=== PATIENT | male | born 1940 | race Caucasian/White ===

== ENCOUNTER → 2023-11-30 15:30 | Outpatient (REF) | payer OTHER, SELFPAY ==
[2023-12-01 09:57] LABS: % Basophils 1.3 % (0-2); % Eosinophils 7.4 % (0-6); % Immature Granulocytes 0.2 % (0-0.5); % Lymphocytes 26.7 % (20.5-51.1); % Monocytes 13.1 % (1.7-9.3); % Neutrophils 51.3 % (42.2-75.2); Absolute Basophils 0.1 10^3/uL (0-0.2); Absolute Eosinophils 0.4 10^3/uL (0-0.7); Absolute Lymphocytes 1.4 10^3/uL (1.2-3.4); Absolute Monocytes 0.7 10^3/uL (0.1-0.6); Absolute Neutrophils 2.7 10^3/uL (1.4-6.5); Hematocrit 40.5 % (39.0-52.0); Hemoglobin 13.3 g/dL (13.0-18.0); Mean Corp Hgb Conc. 32.8 g/dL (33.0-37.0); Mean Corpuscular Hgb 29.6 pg (27.0-31.0); Mean Corpuscular Volume 90.2 fL (80.0-94.0); Mean Platelet Volume 10.4 fL (7.4-10.4); Nucleated Red Blood Cells % 0 % (-); Platelet Count 195 10^3/uL (130-400); Red Blood Cell Count 4.49 10^6/uL (4.70-6.10); Red Cell Dist. Width 13.9 % (11.5-14.5); White Blood Cell Count 5.3 10^3/uL (4.8-10.8)
[2023-12-01 10:29] LABS: ALT (SGPT) 23 U/L (0-50); AST (SGOT) 31 U/L (17-59); Alkaline Phosphatase 65 U/L (38-126); Blood Urea Nitrogen 16 mg/dl (9-20); Calcium 9.2 mg/dl (8.4-10.2); Carbon Dioxide 27 mmol/L (22-30); Chloride 102 mmol/L (98-107); Glucose 124 mg/dl (70-99); HDL Cholesterol 56 mg/dl; LDL Cholesterol, Calculated 62 mg/dl; Potassium 4.5 mmol/L (3.5-5.1); Sodium 135 mmol/L (135-145); Total Bilirubin 0.5 mg/dl (0.2-1.3); Total Cholesterol 136 mg/dl (50-199); Triglyceride 92 mg/dl (10-149); Very Low Density Lipoprotein 18 mg/dl (0-30); eGFR > 60.00
[2023-12-01 13:20] LABS: Glycohemoglobin (HgbA1c) 6.5 % (4.0-5.6)
== END ==
LOC: CLAB 15:30
PROVIDERS: ATTENDING PHYSICIAN Nurse Practitioner
DX: E11.69 Type 2 diabetes mellitus with other specified complication (principal); E78.5 Hyperlipidemia, unspecified; G40.909 Epilepsy, unspecified, not intractable, without status epilepticus
CPT/HCPCS: 80053; 80061; 83036; 85025

== ENCOUNTER 2024-01-29 13:59 | Emergency (ER) | payer OTHER, SELFPAY ==
[2024-01-29 14:00] VITALS: BP 157/68
[2024-01-29 15:00] VITALS: BP 139/85
[2024-01-29 15:45] LABS: % Basophils 0.7 % (0-2); % Immature Granulocytes 0.3 % (0-0.5); % Lymphocytes 21.9 % (20.5-51.1); % Monocytes 12.2 % (1.7-9.3); % Neutrophils 60.9 % (42.2-75.2); Absolute Eosinophils 0.2 10^3/uL (0-0.7); Absolute Lymphocytes 1.3 10^3/uL (1.2-3.4); Absolute Monocytes 0.7 10^3/uL (0.1-0.6); Absolute Neutrophils 3.5 10^3/uL (1.4-6.5); Hematocrit 35.3 % (39.0-52.0); Hemoglobin 12.5 g/dL (13.0-18.0); Mean Corp Hgb Conc. 35.4 g/dL (33.0-37.0); Mean Corpuscular Volume 84.9 fL (80.0-94.0); Mean Platelet Volume 9.3 fL (7.4-10.4); Nucleated Red Blood Cells % 0 % (-); Platelet Count 187 10^3/uL (130-400); Red Blood Cell Count 4.16 10^6/uL (4.70-6.10); White Blood Cell Count 5.8 10^3/uL (4.8-10.8)
[2024-01-29 15:58] LABS: ALT (SGPT) 22 U/L (0-50); AST (SGOT) 30 U/L (17-59); Albumin 4.2 g/dl (3.5-5.0); Alkaline Phosphatase 60 U/L (38-126); Blood Urea Nitrogen 16 mg/dl (9-20); Calcium 9.4 mg/dl (8.4-10.2); Carbon Dioxide 24 mmol/L (22-30); Chloride 98 mmol/L (98-107); Glucose 110 mg/dl (70-99); Potassium 4.4 mmol/L (3.5-5.1); Sodium 131 mmol/L (135-145); Total Bilirubin 0.7 mg/dl (0.2-1.3); Total Protein 7.1 g/dl (6.3-8.2); eGFR > 60.00
--- NOTE | 2024-01-29 15:58 | ED.GENMED ---
History of Present Illness
<Eugenia Lucio PA-C - Last Filed: 01/29/24 22:33>
General
Chief Complaint: Fall
Source: patient
Exam Limitations: none
Time Seen by Provider: 01/29/24 15:05
Nursing documentation reviewed up to this point in time: agreed with
Travel History
Have you had any contact with someone who has COVID-19?: No
Do you have any symptoms of coronavirus? Fever > 100 degrees, chills, cough, shortness of breath, sore throat, loss of taste or smell, muscle aches, or headache?: No
History of Present Illness
History of Present Illness:
Patient is an 83 year old male with hx type 2 diabetes, epilepsy presenting to the emergency department via ems for evaluation of unwitnessed fall earlier today. Patients states that they were at a car dealership around 1PM when patient went to
the bathroom. He states that after entering the bathroom the door swung closed behind him knocking him from behind causing him to lose his balance. He apparently fell striking the back of his head. Fall was unwitnessed given family was on the other
side of the door. They do not believe he lost consciousness. Patient's family does report some increased confusion since fall.
Patient denies any preceding chest pain, shortness of breath, dizziness/lightheadedness prior to fall. He states that he 'lost his balance when hit with the door '. Patient denies any headache, visual changes, nausea/vomiting, neck pain, or back
pain. He denies any pain in his lower extremities. He denies sustaining any other injuries sustained in the fall.
Patient takes a baby aspirin.
Past History
<Eugenia Lucio PA-C - Last Filed: 01/29/24 22:33>
Past History
ED Past Medical History: NIDDM, Seizures and Other (Chronic ambulatory dysfunction, utilizes rolling walker.); Negative HTN or Hypercholesterolemia
ED Past Surgical History: Cardiac and Orthopedic
Social History
Tobacco: Former smoker
Alcohol: None
Drug: None
Personal:
Living: with family
Employment: Retired
Family History
Family History: Hypertension and CAD
Phy Exam
<Eugenia Lucio PA-C - Last Filed: 01/29/24 22:33>
Physical Exam
Physical Exam:
Vitals: Mildly hypertensive, otherwise vital signs stable
General: Patient is well appearing, no acute distress
Skin: Warm and dry, no rashes or lesions
Head: Normocephalic, approximately 1 cm contusion on right posterior scalp
Eyes: Sclera nonicteric. EOMs intact. No nystagmus. Pupils equal round and reactive light bilaterally.
Throat: Protecting airway
Neck: Normal ROM, no cervical spine tenderness, no meningismus
Cardiac: Regular rate and rhythm, no murmurs.
Pulm: Normal respiratory effort, no wheezes, rales, rhonchi heard on exam.
Abdomen: No abdominal tenderness.
Back: No midline spinal tenderness
Extremities: No evidence of cyanosis or edema. Full range of motion in bilateral knees and bilateral hips without any focal tenderness or obvious deformity.
Neuro: AAOx3. CN II-XII intact. No focal neurologic deficits. Strength 5 out of 5 in upper and lower extremities. Sensation fully intact.
Psychiatric: Normal affect.
Course
<Eugenia Lucio PA-C - Last Filed: 01/29/24 22:33>
Orders/Labs/Results
Orders:
Orders
01/29/24
Electrocardiogram (*1) Stat
Comment: ALREADY DONE
01/29/24 15:29
CT Head W/o Iv Contrast Urgent
Comment:
Reason For Exam: fall, posterior head strike
01/29/24 15:33
Complete Blood Count/With Diff Urgent
Comprehensive Metabolic Panel Urgent
01/29/24 16:02
0.9% Sodium Chloride 1000 ml [Nss] 1,000 ml IV BOLUS
Abnormal Lab Results
01/29/24
15:33
RBC 4.16 L 10^6/uL
(4.70-6.10)
Hgb 12.5 L g/dL
(13.0-18.0)
Hct 35.3 L %
(39.0-52.0)
Absolute Monos (auto) 0.7 H 10^3/uL
(0.1-0.6)
Monocytes % 12.2 H %
(1.7-9.3)
Sodium 131 L mmol/L
(135-145)
Glucose 110 H mg/dl
(70-99)
01/29/24 15:33
01/29/24 15:33
Vital Signs
Initial and Last Documented VS:
Initial Vital Signs
Temp Pulse Resp BP Pulse Ox
98.3 F 62 20 157/68 98
01/29/24 14:00 01/29/24 14:00 01/29/24 14:00 01/29/24 14:00 01/29/24 14:00
Last Documented Vital Signs
Temp Pulse Resp BP Pulse Ox
98.3 F 66 20 136/92 100
01/29/24 14:00 01/29/24 17:00 01/29/24 17:00 01/29/24 17:00 01/29/24 17:00
Nahunlt;Zac Xiao DO - Last Filed: 01/29/24 17:14>
Orders/Labs/Results
Orders:
Orders
01/29/24
Electrocardiogram (*1) Stat
Comment: ALREADY DONE
01/29/24 15:29
CT Head W/o Iv Contrast Urgent
Comment:
Reason For Exam: fall, posterior head strike
01/29/24 15:33
Complete Blood Count/With Diff Urgent
Comprehensive Metabolic Panel Urgent
01/29/24 16:02
0.9% Sodium Chloride 1000 ml [Nss] 1,000 ml IV BOLUS
Abnormal Lab Results
01/29/24
15:33
RBC 4.16 L 10^6/uL
(4.70-6.10)
Hgb 12.5 L g/dL
(13.0-18.0)
Hct 35.3 L %
(39.0-52.0)
Absolute Monos (auto) 0.7 H 10^3/uL
(0.1-0.6)
Monocytes % 12.2 H %
(1.7-9.3)
Sodium 131 L mmol/L
(135-145)
Glucose 110 H mg/dl
(70-99)
01/29/24 15:33
01/29/24 15:33
Vital Signs
Initial and Last Documented VS:
Initial Vital Signs
Temp Pulse Resp BP Pulse Ox
98.3 F 62 20 157/68 98
01/29/24 14:00 01/29/24 14:00 01/29/24 14:00 01/29/24 14:00 01/29/24 14:00
Last Documented Vital Signs
Temp Pulse Resp BP Pulse Ox
98.3 F 66 20 136/92 100
01/29/24 14:00 01/29/24 17:00 01/29/24 17:00 01/29/24 17:00 01/29/24 17:00
<Eugenia Lucio PA-C - Last Filed: 01/29/24 22:33>
MDM/Problems Addressed
Differential Diagnosis Includes:
Not limited to: Contusion, concussion, intraparenchymal hemorrhage
MDM/Problems Addressed:
Patient is 83-year-old male presenting via EMS for further evaluation following unwitnessed mechanical fall about an hour ago. There is not believed to be any loss of consciousness. He fell striking his posterior head. Patient has no acute
complaints at this time. Family does believe he may be more forgetful than usual since fall. Patient denies any preceding chest pain, shortness of breath, dizziness prior to fall. This does seem to be a mechanical fall. Patient has stable vital
signs. Exam as above. There is a minor contusion to his right posterior scalp. There are no focal neurologic deficits noted on exam. No other injury sustained during fall. Heart regular rate and rhythm. Lungs clear bilaterally. Basic labs.
Will get EKG and head CT. Will monitor closely reassess.
Labs noted. Mild hyponatremia with sodium of 131. I do not suspect this to be contributor to patient's symptoms. Will give IV fluids. Head CT pending.
Head CT shows no acute intracranial abnormality. Patient is stable for discharge with return precautions, close monitoring at home. Recommended staying well-hydrated. Patient will follow-up with primary care early next week. Patient and patient's
family comfortable with plan. All questions answered.
Chronic conditions affecting care:
N/A
Acute Exacerbation and/or Progression of Chronic Illness:
N/A
<Eugenia Lucio PA-C - Last Filed: 01/29/24 22:33>
*Radiology
Radiology exam reviewed: preliminary read by ED provider and radiology read reviewed
*Pulse Oximetry
Patient hypoxic: no
*EKG
Interpreted by ED Provider?: Yes
EKG Intrepretation Date: 01/29/24
Interpretation: normal
Comparison EKG: no changes
Heart Rate: 62
Rate: normal
Rhythm: sinus
Interval: first degree heart block
Ischemia: no ischemia
*Chocolate Production Machine Operator Interpretation
Rate: Chocolate Production Machine Operator- N/A
*Critical Care Note
Total Time (30-74mins, 75-104mins- exclusive of procedures): Not Applicable
ED Attending Note
<Eugenia Lucio PA-C - Last Filed: 01/29/24 22:33>
-
Portions of this chart may have been created with voice recognition software.� Occasional wrong word or��sound alike� substitutions may have occurred due to the inherent limitations of voice recognition software.
<Zac Xiao DO - Last Filed: 01/29/24 17:14>
ED Attending Note
Patient seen and examined by attending physician: Yes
I performed the substantive portion of visit, reviewed & personally made and approve the management plan that is documented in note by myself or LAMONT.: Yes
ED Attending Note:
I agree with Agueda's note.
Pt feel in bathroom. Pt states door knocked him over. No loc. No chest pain, sob
Neuro: AAOx3, NAD.
CT nothing acute. EKG: NSR @ 62, 1st degree avb. No ischemic changes.
Discharge Plan
Departure
Patient Disposition: Home (Routine Discharge)
Date of Disposition: 01/29/24
Time of Disposition: 17:19
Patient with high blood pressure during this ER visit?: Yes
Condition: Good
Covid-19: Not Applicable
Discharge Problem:
Head injury
Instructions: Concussion, Adult (DC), Head Injury in Adults (DC), Skin Abrasions (DC)
Prescriptions:
No Action
sennosides-docusate sodium [Stool Softener-Stimulant Laxat] 1 EACH tablet
1 ea PO DAILY
oxcarbazepine 300 MG tablet
300 mg PO DAILY
aspirin [Aspir-81] 81 MG tablet,delayed release (DR/EC)
81 mg PO DAILY
tamsulosin 0.4 MG capsule
0.4 mg PO DAILY
diclofenac sodium 75 mg tablet,delayed release (DR/EC)
75 mg PO BID PRN (Reason: pain) Qty: 30 0RF
Referrals:
Estela Walsh CRNP [Family Provider] - Follow up in 5-7 days
Activity Restrictions/Additional Instructions:
- Return to the emergency department with any severe headache, severe neck pain, persistent dizziness/lightheadedness, chest pain, shortness of breath, instability, alterations in mental status, nausea/vomiting, worsening in current symptoms, or any
other concerns
-As discussed�your sodium level was found to be a little bit low in the ER today. You were given 1 L of fluids. You should stay well-hydrated and follow-up with your primary care provider
-You can take Tylenol as needed for headache. You should take it easy over the next few days.
-You should follow-up with your primary care provider early next week to ensure symptoms are improving/for further evaluation and management
Interventions
Interventions:
*Risk Screen - Suicide Last Done: 01/29/24 14:00
*General Assessment Last Done: 01/29/24 14:00
*Neglect/Abuse Screening Last Done: 01/29/24 14:00
*Nursing Disposition Last Done: 01/29/24 17:41
ED-Musculoskeletal Assessment Last Done: 01/29/24 14:30
ED- Neurological Assessment Last Done: 01/29/24 14:30
ED-Skin Assessment Last Done: 01/29/24 14:30
Discharge Date and Time
Discharge Date/Time: 01/29/24 17:43
Print Language: MALAYSIAN
[2024-01-29] MEDS: NSS 1000 IV (16:06)
[2024-01-29 17:00] VITALS: BP 136/92
== END 2024-01-29 17:43 | disposition home or self-care (01) ==
LOC: EMR 13:59
PROVIDERS: Physician Assistant; EMERGENCY PHYSICIAN Emergency Medicine; FAMILY PHYSICIAN Nurse Practitioner
DX: S09.90XA Unspecified injury of head, initial encounter (principal); S00.03XA Contusion of scalp, initial encounter; R41.0 Disorientation, unspecified; W19.XXXA Unspecified fall, initial encounter; Y92.89 Other specified places as the place of occurrence of the external cause; R03.0 Elevated blood-pressure reading, without diagnosis of hypertension; I44.0 Atrioventricular block, first degree; E87.1 Hypo-osmolality and hyponatremia; E11.9 Type 2 diabetes mellitus without complications; R56.9 Unspecified convulsions; Z96.653 Presence of artificial knee joint, bilateral; Z87.891 Personal history of nicotine dependence; Z79.84 Long term (current) use of oral hypoglycemic drugs
CPT/HCPCS: 99284; 70450; 80053; 85025; 93005

== ENCOUNTER → 2024-08-26 11:08 | Outpatient (REF) | payer OTHER, SELFPAY | LOC: RAD 11:08 | PROVIDERS: ATTENDING PHYSICIAN Family Medicine; FAMILY PHYSICIAN Nurse Practitioner | DX: N40.1 Benign prostatic hyperplasia with lower urinary tract symptoms (principal) | CPT/HCPCS: 76770 ==